=== PATIENT | male | born 1955 | race African-American/Black ===

== ENCOUNTER 2017-06-06 19:27 | Emergency (ER) | payer MEDICAID, OTHER ==
[~2017-06-06] VITALS: Ht 177.8 cm; Wt 72.6 kg
[2017-06-06 20:13] LABS: EOSINOPHILS % (AUTO) 1.2 % (0.0-3.0); LYMPHOCYTES % (AUTO) 12.3 % (20.0-45.0); MEAN CORPUSCULAR HGB CONC 32.7 G/DL (32.0-36.0); MEAN CORPUSCULAR VOLUME 98 FL (80-99); MEAN PLATELET VOLUME 7.4 FL (6.5-10.1); MONOCYTES % (AUTO) 5.6 % (1.0-10.0); NEUTROPHILS % (AUTO) 79.8 % (45.0-75.0); PLATELET COUNT 179 K/UL (150-450); RED BLOOD COUNT 4.48 M/UL (4.70-6.10); RED CELL DISTRIBUTION WIDTH 10.5 % (11.6-14.8); WHITE BLOOD COUNT 9.8 K/UL (4.8-10.8)
[2017-06-06 20:38] LABS: ALANINE AMINOTRANSFERASE 26 U/L (12-78); ANION GAP 9 mmol/L (5-15); ASPARTATE AMINO TRANSFERASE 29 U/L (15-37); CALCIUM 8.7 MG/DL (8.5-10.1); CARBON DIOXIDE 29 MMOL/L (21-32); CHLORIDE 101 MMOL/L (98-107); CKMB 9.5 NG/ML (0.0-3.6); GLOMERULAR FILTRATION RATE > 60 mL/min (>60); POTASSIUM 3.4 MMOL/L (3.5-5.1); SODIUM 139 MMOL/L (136-145); TOTAL PROTEIN 7.3 G/DL (6.4-8.2)
[2017-06-06 20:49] VITALS: BP 224/101
--- NOTE | 2017-06-06 21:44 | Emergency Room Report ---
History of Present Illness General Chief Complaint: Abnormal Labs Source: Patient, EMS (KAREEM DUEÑAS M.D.) Present Illness HPI 62-year-old male presents to ED for evaluation. Per EMS patient was found allergic on bus. Accu-Chek was in the 30s. Patient given D10 and more awake now. Patient states he is a diabetic and uses Humalog and Lantus. States that he cannot remember if he ate or not. Does not remember how much medication he takes or when he took it. Patient is hypertensive. She denies any headaches, blurry vision. Denies chest pain or shortness of breath. No other aggravating relieving factors. Denies any other associated symptoms (KAREEM DUEÑAS M.D.) Allergies: Coded Allergies: No Known Allergies (Unverified , 06/06/17) Patient History Past Medical History: DM, HTN Past Surgical History: none Pertinent Family History: none Social History: Denies: smoking, alcohol use, drug use Immunizations: UTD Reviewed Nursing Documentation: PMH: Agreed, PSxH: Agreed (KAREEM DUEÑAS M.D.) Nursing Documentation-PMH Hx Hypertension: Yes Hx Diabetes: Yes (KAREEM DUEÑAS M.D.) Review of Systems All Other Systems: negative except mentioned in HPI (KAREEM DUEÑAS M.D.) Physical Exam Vital Signs Date Time Temp Pulse Resp B/P (MAP) Pulse Ox O2 Delivery O2 Flow Rate FiO2 06/06/17 19:21 97.0 60 16 231/103 99 Room Air Sp02 EP Interpretation: reviewed, normal General Appearance: no apparent distress, alert, GCS 15, non-toxic Head: normocephalic, atraumatic Eyes: bilateral eye normal inspection, bilateral eye PERRL ENT: hearing grossly normal, normal pharynx, no angioedema, normal voice Neck: full range of motion, supple/symm/no masses Respiratory: chest non-tender, lungs clear, normal breath sounds, speaking full sentences Cardiovascular #1: regular rate, rhythm, no edema Cardiovascular #2: 2+ carotid (R), 2+ carotid (L), 2+ radial (R), 2+ radial (L) , 2+ dorsalis pedis (R), 2+ dorsalis pedis (L) Gastrointestinal: normal bowel sounds, non tender, soft, non-distended, no guarding, no rebound Rectal: deferred Genitourinary: normal inspection, no CVA tenderness Musculoskeletal: back normal, gait/station normal, normal range of motion, non- tender Neurologic: alert, oriented x3, responsive, motor strength/tone normal, sensory intact, speech normal Psychiatric: judgement/insight normal, memory normal, mood/affect normal, no suicidal/homicidal ideation Reflexes: 3+ bicep (R), 3+ bicep (L), 3+ tricep (R), 3+ tricep (L), 3+ knee (R) , 3+ knee (L) Skin: normal color, no rash, warm/dry, well hydrated Lymphatic: no adenopathy (KAREEM DUEÑAS M.D.) Medical Decision Making Diagnostic Impression: Primary Impression: Hypertensive urgency Additional Impression: Hypoglycemia Labs Test 06/06/17 19:50 White Blood Count 9.8 K/UL (4.8-10.8) Red Blood Count 4.48 M/UL (4.70-6.10) Hemoglobin 14.3 G/DL (14.2-18.0) Hematocrit 43.8 % (42.0-52.0) Mean Corpuscular Volume 98 FL (80-99) Mean Corpuscular Hemoglobin 32.0 PG (27.0-31.0) Mean Corpuscular Hemoglobin Concent 32.7 G/DL (32.0-36.0) Red Cell Distribution Width 10.5 % (11.6-14.8) Platelet Count 179 K/UL (150-450) Mean Platelet Volume 7.4 FL (6.5-10.1) Neutrophils (%) (Auto) 79.8 % (45.0-75.0) Lymphocytes (%) (Auto) 12.3 % (20.0-45.0) Monocytes (%) (Auto) 5.6 % (1.0-10.0) Eosinophils (%) (Auto) 1.2 % (0.0-3.0) Basophils (%) (Auto) 1.0 % (0.0-2.0) Sodium Level 139 MMOL/L (136-145) Potassium Level 3.4 MMOL/L (3.5-5.1) Chloride Level 101 MMOL/L (98-107) Carbon Dioxide Level 29 MMOL/L (21-32) Anion Gap 9 mmol/L (5-15) Blood Urea Nitrogen 12 mg/dL (7-18) Creatinine 1.0 MG/DL (0.55-1.30) Estimat Glomerular Filtration Rate > 60 mL/min (>60) Glucose Level 121 MG/DL (74-106) Calcium Level 8.7 MG/DL (8.5-10.1) Total Bilirubin 0.5 MG/DL (0.2-1.0) Aspartate Amino Transf (AST/SGOT) 29 U/L (15-37) Alanine Aminotransferase (ALT/SGPT) 26 U/L (12-78) Alkaline Phosphatase 74 U/L (46-116) Total Creatine Kinase 504 U/L (26-308) Creatine Kinase MB 9.5 NG/ML (0.0-3.6) Creatine Kinase MB Relative Index 1.8 Troponin I 0.014 ng/mL (0.000-0.056) Total Protein 7.3 G/DL (6.4-8.2) Albumin 3.7 G/DL (3.4-5.0) Globulin 3.6 g/dL Albumin/Globulin Ratio 1.0 (1.0-2.7) (KAREEM DUEÑAS M.D.) ER Course Please see above note. Glucose better and BP better after hydralazine. Patient was to be transferred for continued monitoring of glucose and BP. Patient is refusing to stay in the hospital. I told him that he was at risk of due to hypoglycemia and also hypertension. He still is insisting on going home. He states he knows why this happened to him that he just needed to eat. I advised him to decrease the amount of his insulin dosing. He understands this. I also told him that if he changes his mind to come back to the hospital. (Trung Smith M.D.) EKG Diagnostic Results Rate: normal Rhythm: other - arryhtmia ST Segments: no acute changes ASA given to the pt in ED: No (KAREEM DUEÑAS M.D.) Rhythm Strip Diag. Results EP Interpretation: yes Rhythm: no PVC's, no ectopy (KAREEM DUEÑAS M.D.) CT/MRI/US Diagnostic Results CT/MRI/US Diagnostic Results : Imaging Test Ordered: CT Head Impression chronic changes, no acute process (KAREEM DUEÑAS M.D.) Last Vital Signs Date Time Temp Pulse Resp B/P (MAP) Pulse Ox O2 Delivery O2 Flow Rate FiO2 06/06/17 21:32 196/94 06/06/17 20:49 97.0 73 21 100 Room Air Status: improved (KAREEM DUEÑAS M.D.) Last Vital Signs Date Time Temp Pulse Resp B/P (MAP) Pulse Ox O2 Delivery O2 Flow Rate FiO2 06/06/17 23:40 98.2 84 26 164/69 100 Room Air Status: improved (Trung Smith M.D.) Disposition: AGAINST MEDICAL ADVICE Condition: Improved Referrals: NON PHYSICIAN (PCP) KAREEM DUEÑAS M.D. Jun 06, 2017 21:44 Trung Smith M.D. Jun 06, 2017 23:26
[2017-06-06] MEDS ORDERED: METFORMIN HCL500 M1 ORAL (22:31)
[2017-06-06] MEDS ORDERED: GABAPENTIN400 MG ORAL (22:32)
[2017-06-06] MEDS ORDERED: ASPIR 8181 MG ORAL (22:33)
[2017-06-06] MEDS ORDERED: HYDRALAZINE HC100 MG ORAL (22:34)
[2017-06-06 22:48] VITALS: BP 164/69
[2017-06-06 23:40] VITALS: BP 164/69
--- NOTE | 2017-06-07 10:38 | Diagnostic Imaging Report ---
Indication: Headache Technique: Contiguous 5 mm thick transaxial imaging of the head obtained in a Siemens Sensation [address] scanner. Soft tissue and bone windows generated. Total Dose length Product (DLP): [address] Dose Index Volume (CTDIvol): 70.38, 0.15 mGy Comparison: none Findings: There is mild prominence of the ventricles, basal cisterns, and cerebral sulci consistent with atrophy. Mild, nonspecific, white matter hypoattenuation is noted throughout the brain consistent with chronic small vessel disease. There is no midline shift, edema, acute hemorrhage, mass effect, or abnormal extra-axial fluid collections. Bones and extra osseous soft tissues are unremarkable. Impression: No acute intracranial bleed, mass effect or edema. Mild atrophy of the brain. Nonspecific white matter hypoattenuation probably due to chronic small vessel disease. Dr. Garzon has communicated the preliminary results to the Emergency Department. There are no significant discrepancies. The CT scanner at [facility] is accredited by the [employer] and the scans are performed using dose optimization techniques as appropriate to a performed exam including Automatic Exposure control.
--- NOTE | 2017-06-08 17:30 | Cardiology Report ---
APPROVED REPORT EKG Measurement Heart [id number] MI [id number] [id number] Unusual P axis and short MI, probable junctional rhythm with premature atrial complexes Anterior infarct, age undetermined Abnormal ECG
== END 2017-06-06 23:40 | disposition left against medical advice (07) ==
LOC: EDBD 19:27 → EMR 19:50 → CANBEDREQ 23:48
DX: I16.0 Hypertensive urgency (principal); E11.649 Type 2 diabetes mellitus with hypoglycemia without coma; R51 Headache; G31.9 Degenerative disease of nervous system, unspecified
CPT/HCPCS: 36415; 70450; 80053; 82550; 82553; 84484; 85025; 93005; 96374; 99284; J0360